=== PATIENT | male | born 1955 | race Caucasian/White ===

== ENCOUNTER 2016-09-30 08:18 | Day surgery (SDC) | payer BC ==
--- NOTE | ~2016-09-30 | EGD ---
EGD REPORT [facility] [address] [place] 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 Estimated blood loss: None. Procedure: Pre-Anesthesia Assessment: - ASA Grade Assessment: III - A patient with severe systemic disease. After obtaining informed consent, the endoscope was passed under direct vision. Throughout the procedure, the patient's blood pressure, pulse, and oxygen saturations were monitored continuously. The GIF [id number] was introduced through the mouth, and advanced to the second part of duodenum. The upper GI endoscopy was accomplished without difficulty. Findings: The Z-line was irregular and was found 37 cm from the incisors. Focal radiofrequency ablation of Harrison's esophagus was performed. With the endoscope in place, the position and extent of the Harrison's mucosa and the anatomic landmarks were noted. The endoscope was then removed from the patient. The Halo radiofrequency ablation catheter was attached to the tip of the endoscope. The endoscope with the attached radiofrequency ablation catheter was then passed transorally under direct vision into the esophagus and advanced to the areas of Harrison's mucosa. The areas included an irregular Z-line of Harrison's mucosa. The radiofrequency ablation catheter was placed in contact with the surface of the Harrison's mucosa under direct visualization and energy was applied twice at 12 J/cm2. Ablation was repeated in a likewise fashion to all visible Harrison's mucosa. The ablation zone was cleaned of coagulative debris. The ablation catheter and endoscope were then removed and the catheter was cleaned. The catheter and endoscope were reinserted into the esophagus. A second round of ablation was then performed. Energy was applied twice at 12 J/cm2 to retreat the areas of Harrison's epithelium that had been treated with the first series of ablation. The areas of the esophagus where Harrison's mucosa had been ablated were carefully EGD REPORT [address] [place]. [address] NAME: LARS CUELLAR : 53 STATUS : REG [facility] PAT#: [id number] AGE: 61 ADM/REG DATE : 09/30/16 MR#: [id number] REPORT SERV DATE: 09/30/16 DICTATED BY: TAYA BELL DATE: 09/30/16 REPORT STATUS : Draft TRANSCRIBED BY: [employer] DATE: 09/30/16 examined. Normal mucosa was found in the lower third of the esophagus. Mucosa was biopsied with a cold forceps for histology in 4 quadrants at intervals of 1 cm at 34 cm from the incisors, at 35 cm from the incisors, at 36 cm from the incisors and at 37 cm from the incisors. A total of 4 specimen bottles were sent to pathology. The exam of the esophagus was otherwise normal. The entire examined stomach was normal. The cardia and gastric fundus were normal on retroflexion. The examined duodenum was normal. Impression: - Z-line irregular, 37 cm from the incisors. Treated with radiofrequency ablation. - Normal mucosa was found in the lower third of the esophagus. Biopsied. - Normal stomach. - Normal examined duodenum. Recommendation: - Return to previous diet. - Continue present medications. - Await pathology results. - Repeat the upper endoscopy in 3 months for surveillance. 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 All rights reserved. The codes documented in this report are preliminary and upon plastering supervisor review may be revised to meet current compliance requirements. TAYA BELL EGD REPORT [facility] [address] [address] NAME: LARS CUELLAR : 53 STATUS : REG [facility] PAT#: [id number] AGE: 61 ADM/REG DATE : 09/30/16 MR#: [id number] REPORT SERV DATE: 09/30/16 DICTATED BY: TAYA BELL DATE: 09/30/16 REPORT STATUS : Draft TRANSCRIBED BY: [employer] DATE: 09/30/16 09/30/2016 9:55 AM Number of Addenda: 0 Note Initiated On: 09/30/2016 9:24 AM Scope Withdrawal Time 0 hours 0 minutes 0 seconds [address] [place] [id number]
[~2016-09-30 08:18] MED LIST: ASAB PO; CO Q-10100 MG PO; COZAAR100 MG PO; FISH-EPA1000 MG PO; HEMOCYTE324 MG PO; HEMOCYTET PO; LIPITOR20 PO; LOFIB160 PO; PRILO PO; PRILOSEC40 MG PO; TRAVATAN Z 0.004% OPH; VITE PO
== END 2016-09-30 23:59 | disposition home or self-care (01) ==
LOC: DMU 08:18
PROVIDERS: Internal Medicine Gastroenterology
PROC: 0D558ZZ Destruction of Esophagus, Via Natural or Artificial Opening Endoscopic (ICD-10-PCS; principal; 2016-09-30 10:00)
PROC: 0DB38ZZ Excision of Lower Esophagus, Via Natural or Artificial Opening Endoscopic (ICD-10-PCS; 2016-09-30 10:00)
DX: K20.8 Other esophagitis (principal); Z09 Encounter for follow-up examination after completed treatment for conditions other than malignant neoplasm; D00.1 Carcinoma in situ of esophagus; K22.711 Barrett's esophagus with high grade dysplasia; H40.9 Unspecified glaucoma; I10 Essential (primary) hypertension; Z79.899 Other long term (current) drug therapy; Z79.82 Long term (current) use of aspirin
CPT/HCPCS: 88305